=== PATIENT | male | born 1975 | race Caucasian/White ===

== ENCOUNTER → 2016-04-18 | Day surgery (SDC) | payer BC | LOC: MSO 08:10 | DX: Z12.11 Encounter for screening for malignant neoplasm of colon (principal); Z80.0 Family history of malignant neoplasm of digestive organs; F17.220 Nicotine dependence, chewing tobacco, uncomplicated | CPT/HCPCS: 00810; J3010; J7120 ==

== ENCOUNTER → 2022-06-27 | Day surgery (SDC) | payer BC | END | disposition home or self-care (01) | LOC: MSO 09:42 | DX: Z12.11 Encounter for screening for malignant neoplasm of colon (principal); Z83.71 Family history of colonic polyps; F17.220 Nicotine dependence, chewing tobacco, uncomplicated | CPT/HCPCS: 00812; J2704; J7120 ==